=== PATIENT | male | born 1995 | race Caucasian/White ===

== ENCOUNTER 2017-11-11 01:50 | Emergency (ER) | payer SELFPAY ==
[2017-11-11] MEDS ORDERED: OLANZapine 10 MG/2 ML VIAL IM ONE (01:54)
--- NOTE | 2017-11-11 01:55 | EDPHY ---
H & P Time Seen by Provider: 11/11/17 01:54 HPI/ROS: HPI CHIEF COMPLAINT: High on LSD. Agitated HISTORY OF PRESENT ILLNESS: Patient is a 22-year-old male who presents emergency room by EMS with police escort high on LSD and some agitation. They make contact with him as he was trying to get into a car with some drunk buddies was causing a disturbance so EMS arrived evaluated me appears to be high on LSD admits to LSD. His pupils are 8 mm minimally reactive to light but equal. At this time upon my evaluation he is agitated and laughing and not following commands. Past Medical History: Unknown medical history Past Surgical History: Unknown surgical history Social History: LSD this evening. Family History: Unknown ROS REVIEW OF SYSTEMS: Limited due to patient's acute intoxication and mental state. Exam Constitutional agitated, laughing, high on LSD triage nursing summary reviewed , vital signs reviewed, awake/alert. Eyes normal conjunctivae and sclera, EOMI, 8 mm minimally reactive to light equal. HENT normal inspection, atraumatic, moist mucus membranes, no epistaxis, neck supple/ no meningismus, no raccoon eyes. Respiratory clear to auscultation bilaterally, normal breath sounds, no respiratory distress, no wheezing. Cardiovascular rate normal, regular rhythm, no murmur, no edema, distal pulses normal. Gastrointestinal soft, non-tender, no rebound, no guarding, normal bowel sounds, no distension, no pulsatile mass. Genitourinary no CVA tenderness. Musculoskeletal no midline vertebral tenderness, full range of motion, no calf swelling, no tenderness of extremities, no meningismus, good pulses, neurovascularly intact. Skin pink, warm, & dry, no rash, skin atraumatic. Neurologic awake, alert and oriented x 3, AAOx3, moves all 4 extremities equally, motor intact, sensory intact, CN II-XII intact, normal cerebellar, normal vision, normal speech. Psychiatric normal mood/affect. Heme/Lymph/Immune no lymphadenopathy. Differential Diagnosis: Includes but is not limited to in a particular order acute intoxication, LSD intoxication, other drug intoxication, alcohol intoxication, acute agitation. Medical Decision Making: Plan for this patient IM Zyprexa 10 mg for acute agitation, and control of his around behavior. Will monitor closely on the monitor. Monitor for sobriety. Re-evaluation: 604: Patient resting comfortably no acute distress. I did re-evaluate him he has stable vital signs. He initially came in agitated and intoxicated he has done well with some Zyprexa. He is now alert and oriented, cooperative and is eager to be discharged. He is requesting discharge. He has no complaints. He does not appear to be under the influence of LSD any further. I highly recommend that he refrain from doing drugs. Additionally return precautions discussed with him he understands. Source: Patient, Police, EMS Constitutional: Initial Vital Signs Temperature (C) 36.7 C 11/11/17 02:03 Heart Rate 138 H 11/11/17 02:03 Respiratory Rate 18 11/11/17 02:03 Blood Pressure 163/87 H 11/11/17 02:03 O2 Sat (%) 97 11/11/17 02:03 O2 Delivery Mode Room Air Allergies/Adverse Reactions: Unable to Assess Allergy (Unverified 11/11/17 02:02) Home Medications: Medication Instructions Recorded Unobtainable 11/11/17 Medical Decision Making - Data Points Medications Given: Discontinued Medications Midazolam HCl (Versed) 4 mg IM EDNOW ONE Stop: 11/11/17 02:07 Last Admin: 11/11/17 02:07 Dose: 4 mg Olanzapine (Zyprexa Im Injection) 10 mg IM EDNOW ONE Stop: 11/11/17 01:55 Last Admin: 11/11/17 02:07 Dose: 10 mg Departure - Departure Disposition: Home, Routine, Self-Care Clinical Impression: Polysubstance abuse Condition: Good Instructions: Polysubstance Abuse (ED) Additional Instructions: 1. I recommend he refrain from doing drugs. 2. Return emergency room if you have any worsening symptoms questions or concerns. Referrals: Patient,NotPresent [Primary Care Provider] - As per Instructions
[2017-11-11] MEDS ORDERED: MIDAZOLAM 2 MG/2 ML VIAL ONE (02:03)
[2017-11-11] MEDS ORDERED: MIDAZOLAM 10 MG/2 ML VIAL IM ONE (02:06)
[2017-11-11 06:12] VITALS: BP 113/96
== END 2017-11-11 06:12 | disposition home or self-care (01) ==
DX: F19.10 Other psychoactive substance abuse, uncomplicated (principal)
CPT/HCPCS: J2250

== ENCOUNTER 2018-02-25 01:39 | Emergency (ER) | payer SELFPAY ==
[2018-02-25] MEDS ORDERED: IPRATROPIUM/ALBUTEROL 3 ML DEYVIAL IH ONE (01:52)
--- NOTE | 2018-02-25 02:02 | EDPHY ---
H & P Stated Complaint: SOB and cought x 5 days Time Seen by Provider: 02/25/18 01:52 HPI/ROS: Chief Complaint: Cough, shortness of breath HPI: 22-year-old male with a history of asthma presenting with 1 week of worsening cough and shortness of breath. He ran out of his albuterol about 2 months ago. He moved here from for about 4 months ago. Has not been taking any medications. No fevers or chills. Cough is nonproductive. Has had some tightness. Worsening for the last 5 days. No chest pain. ROS: 10 systems were reviewed and were negative except those elements noted in the HPI. PMH: Asthma Social History: Positive smoking, occasional alcohol Family History: non-contributory Physical Exam: Gen: Awake, Alert, No Distress HEENT: Nose: no rhinorrhea Eyes: PERRLA, EOMI Mouth: Moist mucosa Neck: Supple, no JVD Chest: nontender, diffuse inspiratory expiratory wheezing, no focal rales or rhonchi Heart: S1, S2 normal, no murmur Abd: Soft, non-tender, no guarding Back: no CVA tenderness, no midline tenderness Ext: no edema, non-tender Skin: no rash Neuro: CN II-XII intact, Sensation grossly intact, Strength 5/5 in bilateral upper and lower extremities - Personal History Current Tetanus Diphtheria and Acellular Pertussis (TDAP): Yes - Medical/Surgical History Hx Asthma: Yes Hx Chronic Respiratory Disease: No Hx Diabetes: No Hx Cardiac Disease: No Hx Renal Disease: No Hx Cirrhosis: No Hx Alcoholism: No Hx HIV/AIDS: No Hx Splenectomy or Spleen Trauma: No Other PMH: asthma - Social History Smoking Status: Current every day smoker Constitutional: Initial Vital Signs Temperature (C) 36.8 C 02/25/18 01:43 Heart Rate 90 02/25/18 01:43 Respiratory Rate 20 02/25/18 01:43 Blood Pressure 140/81 H 02/25/18 01:43 O2 Sat (%) 95 02/25/18 01:43 O2 Delivery Mode Room Air Allergies/Adverse Reactions: No Known Allergies Allergy (Unverified 02/25/18 01:41) Home Medications: Medication Instructions Recorded NK [No Known Home Meds] 02/25/18 Medical Decision Making ED Course/Re-evaluation: Patient is improved after a single DuoNeb. Lungs are clear. Will discharge with an albuterol inhaler with a spacer and referral to [facility] for outpatient follow-up. - Data Points Medications Given: Discontinued Medications Albuterol/Ipratropium (Duoneb) 3 ml IH EDNOW ONE Stop: 02/25/18 01:53 Last Admin: 02/25/18 01:54 Dose: 3 ml Departure - Departure Disposition: Home, Routine, Self-Care Clinical Impression: Exacerbation of asthma Condition: Good Instructions: Albuterol (By breathing), Asthma (ED) Additional Instructions: Always use inhaler with a spacer device. He may use your inhaler 1-2 puffs every 4 hours as needed for cough or wheeze. Follow up with [facility] in 3-4 days for further evaluation. Referrals: [facility],. [Clinic] - As per Instructions
[2018-02-25] MEDS ORDERED: ALBUTEROL INH PREPACK MDI TAKEHOME ONE (02:28)
[2018-02-25 02:32] VITALS: BP 145/99
== END 2018-02-25 02:42 | disposition home or self-care (01) ==
DX: J45.901 Unspecified asthma with (acute) exacerbation (principal); F17.200 Nicotine dependence, unspecified, uncomplicated

== ENCOUNTER 2018-10-17 16:48 | Emergency (ER) | payer MEDICAID ==
[2018-10-17 16:58] VITALS: BP 120/74
--- NOTE | 2018-10-17 17:10 | EDPHY ---
H & P Stated Complaint: INCREASING SORENESS L ANKLE/AND WANTS US TO GIVE HIM ANOTHER RESCUE INHALER Source: Patient Exam Limitations: No limitations - Personal History Current Tetanus Diphtheria and Acellular Pertussis (TDAP): Yes - Medical/Surgical History Hx Asthma: Yes Hx Chronic Respiratory Disease: No Hx Diabetes: No Hx Cardiac Disease: No Hx Renal Disease: No Hx Cirrhosis: No Hx Alcoholism: No Hx HIV/AIDS: No Hx Splenectomy or Spleen Trauma: No Other PMH: asthma - Social History Smoking Status: Current every day smoker Time Seen by Provider: 10/17/18 17:05 HPI/ROS: HPI: This is a 23-year-old male who presents with Chief Complaint: INCREASING SORENESS L ANKLE/AND WANTS US TO GIVE HIM ANOTHER RESCUE INHALER Location: Left ankle Quality: Soreness Duration: Several days Signs and Symptoms: No bleeding, no radiation, no numbness, no weakness, no tingling, no incontinence, no decreased range of motion, + swelling, + pain, no fever Timing: Gradually worsening Severity: [id number] Context: Patient reports that he has flat feet, wears van shoes, presents with complaints of left lateral ankle swelling and tenderness over the last few days. He reports that he has been skateboarding over the last week almost constantly. He denies any actual injury. Denies radiation, weakness, decreased range of motion. He also has a history of asthma, no primary care provider, and is requesting refill of his albuterol inhaler. He denies any fever, shortness of breath, chest pain. Modifying Factors: None Comment: ROS: A comprehensive 10 system review of systems is otherwise negative aside from elements mentioned in the history of present illness. MEDICAL/SURGICAL/SOCIAL HISTORY: Medical history: Asthma Surgical history: Denies Social history: Tobacco user. Occasional alcohol use. CONSTITUTIONAL: Extremely polite and cooperative young adult white male, awake and alert, no obvious distress HEENT: Atraumatic and normocephalic, PERRL, EOMI. Nares patent; no rhinorrhea; no nasal mucosal edema. Tympanic membranes clear. Oropharynx clear, no exudate and moist pink mucosa. Airway patent. No lymphadenopathy. No meningismus. Cardiovascular: Normal S1/S2, regular rate, regular rhythm, without murmur rub or gallop. PULMONARY/CHEST: Symmetrical and nontender. Clear to auscultation bilaterally. Good air movement. No accessory muscle usage. ABDOMEN: Soft, nondistended, nontender, no rebound, no guarding, no peritoneal signs, no masses or organomegaly. No CVAT. EXTREMITIES: 2/2 pulses, strength 5/5, bilateral pes planus; left Ankle: Plantar flexion to 50, dorsiflexion to 20. Foot inversion to 35 degree. No tenderness/swelling Anterior talofibular ligament. No tenderness/swelling Calcaneofibular ligament, mild tenderness/swelling posterior talofibular ligament, mild tenderness/swelling posterior inferior tibiofibular ligament. Achilles tendon intact. no deformities, no clubbing, no cyanosis or edema. NEUROLOGICAL: no focal neuro deficits. GCS 15. SKIN: Warm and dry, no erythema. no rash. Good capillary refill. (Alice Gutierrez) Constitutional: Initial Vital Signs Temperature (C) 36.9 C 10/17/18 16:55 Heart Rate 83 10/17/18 16:55 Respiratory Rate 18 10/17/18 16:55 Blood Pressure 120/74 10/17/18 16:55 O2 Sat (%) 96 10/17/18 16:55 O2 Delivery Mode Room Air Allergies/Adverse Reactions: No Known Allergies Allergy (Verified 10/17/18 16:55) Home Medications: Medication Instructions Recorded Albuterol 10/17/18 Albuterol Sulfate [Proair Hfa] 1 - 2 puffs IH Q4-6PRN PRN #1 10/17/18 [email or web address] Medical Decision Making - Diagnostics Imaging Results: Imaging Impressions Ankle X-Ray 10/17/18 17:06 Impression: 1. No underlying osseous abnormality seen left ankle. 2. Mild soft tissue swelling laterally. Procedures: Procedure: Splint placement. A left Moreno boot was applied. After application of the splint I returned and re-examined the patient. The splint was adequately immobilizing the joint and distal to the splint the patient's circulation and sensation was intact. (Alice Gutierrez) ED Course/Re-evaluation: Vital signs reviewed and stable upon arrival. Left ankle x-ray ordered and my read shows no fracture, dislocation. + mild lateral soft tissue swelling noted Suspect this is an overuse injury/tendinitis exacerbated by flat feet. Patient was advised to wear proper supportive footwear and obtain orthotic shoe inserts. Placed in Moreno boot until pain free or seen by Podiatry No signs of neurovascular compromise/tenting of skin/compartment syndrome/ extremities and joints examined above and below area of concern and are neurovascularly intact. Patient was also given a prescription for asthma inhaler and [facility] to establish care for primary care provider. No signs of asthma exacerbation, hypoxia, respiratory distress. This patient was seen under the supervision of my secondary supervising physician. I evaluated and cared for this patient independently. (Alice Gutierrez) I did not see this patient while he was in the emergency department. However his care was discussed with the PA while the patient was in the department. I agree with treatment plan and management (John Page) Differential Diagnosis: Ankle injury differential diagnosis includes but is not limited to tibia fracture, fibula fracture, metatarsal fracture, LisFranc fracture, achilles tendon rupture, sprain. (Alice Gutierrez) Departure - Departure Disposition: Home, Routine, Self-Care Clinical Impression: Pes planus of both feet, Left ankle tendonitis, Asthma without acute exacerbation Condition: Good Instructions: Tendinitis (ED), Ankle Strain (ED), Flatfoot (DC) Additional Instructions: Wear the walking boot until pain free or seen by Podiatry. Take Tylenol 650 mg every 4 hours and/or Ibuprofen 600 mg every 8 hours with food as needed for pain. Apply ice for 30 minutes at a time; 2-3 times per day for the next 1-2 days. You would benefit from wearing supportive footwear and/or obtaining orthotic shoe inserts. Follow up with Podiatry in 1-2 weeks if symptoms persist at which time they will evaluate and recommend with you if conservative management versus MRI is indicated. The x-rays obtained in the emergency department today demonstrate no evidence of an obvious fracture. Referrals: [facility],. [Clinic] - As per Instructions Josias Hollins DPM [Doctor of Podiatric Medicine] - Follow Up Only If Needed Prescriptions: Albuterol Sulfate [Proair Hfa] 1 - 2 puffs IH Q4-6PRN PRN #1 [email or web address] PRN Reason: Short Of Breath/Dyspnea
--- NOTE | 2018-10-17 18:28 | ASMTCMCOM ---
CM Note CM Note Notes: Chart reviewed and met with patient to discuss folllow care and establishment of PCP. Patient states that he does not have a primary care provider and is just recently covered with [place] Medicaid. He has a history of asthma and is requesting an inhaler, "like you gave me last time I was here". I discussed with patient his ability to fill his inhaler prescription (provider on this ER visit) at any pharmacy and stressed the importance of establishing a PCP for management of his asthma and other healthcare needs. A referral was provided to patient for [facility] and I have left a voicemail on the backilne and faxed ER report referral to the clinic with confirmation. Patient assures me that he will call the clinic tomorrow and schedule an ER follow up appointment and establish care. CM available prn for further needs. Date Signed: 10/17/2018 06:27 PM Electronically Signed By:Fannie Rivas RN
== END 2018-10-17 17:48 | disposition home or self-care (01) ==
DX: M77.9 Enthesopathy, unspecified (principal); M21.42 Flat foot [pes planus] (acquired), left foot; M21.41 Flat foot [pes planus] (acquired), right foot; J45.909 Unspecified asthma, uncomplicated; F17.200 Nicotine dependence, unspecified, uncomplicated

== ENCOUNTER 2018-10-20 10:28 | Emergency (ER) | payer MEDICAID ==
--- NOTE | 2018-10-20 10:41 | EDPHY ---
H & P Time Seen by Provider: 10/20/18 10:30 HPI/ROS: CHIEF COMPLAINT: Chest pain HISTORY OF PRESENT ILLNESS: Patient did " LSD and Caroline" last night developed central chest pain pressure about 7 hr ago. Slightly pleuritic, not exertional , no radiation. No cough or fever and no injury or trauma. Symptoms moderate in nature about 10. REVIEW OF SYSTEMS: Eye: no change in vision ENT: no sore throat Cardiac: HPI no palpitations or syncope Pulmonary: no cough or SOB Abdomen: no vomiting, diarrhea, abdominal pain Musculoskeletal: Patient was here 3 days ago for nontraumatic left ankle pain, diagnosed with tendonitis and in a walking boot since then. Still has pain and really unable to stand very much at work today Skin: no rash Neuro: no headache Constitutional: no fever : no urinary symptoms A comprehensive 10 point review of systems is otherwise negative aside from elements mentioned in the history of present illness. PAST MEDICAL HISTORY: Asthma, right thumb surgery for injury Family history: Negative for premature coronary disease or VTE. Social history: Recent drug use see HPI, works in a [employer] General Appearance: Alert and conversant, cooperative. Eyes: No scleral icterus. ENT, Mouth: Normal mucous membranes. Respiratory: Normal respiratory effort, breath sounds equal, lungs are clear to auscultation. Not wheezing, speaks in full sentences. Breath sounds are equal , no crepitus. Cardiovascular: Regular rate and rhythm. Tachycardic without murmur. Gastrointestinal: Abdomen is soft and non tender. Neurological: Alert, face symmetric, normal motor and sensory in extremities. Skin: Warm and dry, no rashes. Musculoskeletal: No calf tenderness. No Achilles tenderness. He has some lateral lower leg tenderness but compartments are soft. Psychiatric: Not agitated. Emergency Department course/MDM: Ankle x-ray done a previous visit. Negative family history for venous thromboembolism. Tachycardic. Initial EKG does not show ST elevation. Oral ibuprofen, IV Valium, troponin and D-dimer. Differential diagnosis considered for chest pain including but not limited to myocardial ischemia, aortic dissection, pericarditis, pulmonary embolus, chest wall pain, pleural inflammation and pulmonary infectious causes. Also considered pneumothorax or hemothorax or pneumomediastinum, thought unlikely. 1148: Troponin and D-dimer negative. Results discussed, feels better, heart rate less than 100 now. Smoking Status: Current every day smoker Constitutional: Initial Vital Signs Temperature (C) 36.7 C 10/20/18 10:32 Heart Rate 104 H 10/20/18 10:32 Respiratory Rate 20 10/20/18 10:32 Blood Pressure 153/98 H 10/20/18 10:32 O2 Sat (%) 96 10/20/18 10:32 O2 Delivery Mode Room Air Allergies/Adverse Reactions: No Known Allergies Allergy (Verified 10/20/18 10:34) Home Medications: Medication Instructions Recorded Albuterol 10/17/18 Albuterol Sulfate [Proair Hfa] 1 - 2 puffs IH Q4-6PRN PRN #1 10/17/18 [email or web address] Medical Decision Making - Diagnostics EKG Interpretation: 12-lead EKG interpreted by me; official reading is in computer system. My interpretation is sinus tachycardia with left atrial enlargement, no acute ST changes, rate 110. - Data Points Laboratory Results: Laboratory Results 10/20/18 10:40 10/20/18 10/20/18 10/20/18 10:48 10:40 10:40 D-Dimer 0.28 ug/mLFEU ug/mLFEU (0.00-0.50) Sodium 139 mEq/L mEq/L (135-145) Potassium 4.3 mEq/L mEq/L (3.5-5.2) Chloride 104 mEq/L mEq/L (97-110) Carbon Dioxide 19 mEq/l L mEq/l (22-31) Anion Gap 16 mEq/L H mEq/L (6-14) BUN 13 mg/dL mg/dL (7-23) Creatinine 1.0 mg/dL mg/dL (0.7-1.3) Estimated GFR > 60 Glucose 120 mg/dL H mg/dL (70-100) Calcium 10.2 mg/dL mg/dL (8.5-10.4) POC Troponin I 0.00 ng/mL ng/mL (0.00-0.08) Medications Given: Discontinued Medications Sodium Chloride (Ns) 1,000 mls @ 0 mls/hr IV EDNOW ONE; Wide Open PRN Reason: Protocol Stop: 10/20/18 10:46 Last Admin: 10/20/18 10:52 Dose: 1,000 mls Ibuprofen (Motrin) 600 mg PO EDNOW ONE Stop: 10/20/18 10:46 Last Admin: 10/20/18 10:53 Dose: 600 mg Lorazepam (Ativan Injection) 1 mg IVP EDNOW ONE Stop: 10/20/18 10:45 Last Admin: 10/20/18 10:53 Dose: 1 mg Point of Care Test Results: Chemistry 10/20/18 10:48 POC Troponin I 0.00 ng/mL ng/mL (0.00-0.08) Departure - Departure Disposition: Home, Routine, Self-Care Clinical Impression: Chest pain Qualifiers: Chest pain type: unspecified Qualified Code(s): R07.9 - Chest pain, unspecified Condition: Good Instructions: Chest Pain (ED) Additional Instructions: Testing here shows that heart attack or blood clot is not likely to be the cause of your symptoms. Referrals: [facility],. [Clinic] - As per Instructions
[2018-10-20] MEDS ORDERED: LORazepam 2 MG/ML INJ IVP ONE (10:44)
[2018-10-20] MEDS ORDERED: NS 1,000 ML IV ONE (10:45)
[2018-10-20] MEDS ORDERED: IBUPROFEN 600 MG TAB PO ONE (10:45)
--- NOTE | 2018-10-20 10:45 | CPEKG ---
Test Reason : OPEN Blood Pressure : / mmHG Vent. Rate : 110 BPM Atrial Rate : 112 BPM P-R Int : 145 ms QRS Dur : 082 ms QT Int : 293 ms P-R-T Axes : 077 065 065 degrees QTc Int : 397 ms Sinus tachycardia Probable left atrial enlargement Confirmed by Erasmo Wallace ([id number]) on 10/20/2018 10:45:18 AM Referred By: Erasmo Wallace Confirmed By:Erasmo Wallace
[2018-10-20 11:52] VITALS: BP 122/78
== END 2018-10-20 12:06 | disposition home or self-care (01) ==
DX: R07.89 Other chest pain (principal); E86.9 Volume depletion, unspecified
CPT/HCPCS: 84484-ER; 96374; J2060